=== PATIENT | female | born 1940 | race Caucasian/White ===

== ENCOUNTER → 2018-02-12 07:17 | Outpatient (CLI) | payer MEDICARE, OTHER, SELFPAY ==
--- NOTE | 2018-02-12 07:21 | MRI_ITS ---
STUDY: MRI RIGHT HIP REASON FOR EXAM: Chronic right hip pain for 10-15 years. Psoriatic arthritis. TECHNIQUE: Standardized fat and water weighted pulse sequences were obtained in all 3 orthogonal planes. COMPARISON: Radiographs 06/29/2017. FINDINGS: There is chondral thinning of the right hip and subchondral cystic change/mild bone edema of the right femoral head and acetabulum (proton-density sagittal images 10, 11; inversion recovery coronal images 16-19). There is a right hip joint effusion (proton-density sagittal images 11-14). There is degeneration of the right superior labrum (inversion recovery coronal images 17-19) and right anterosuperior labrum (proton density sagittal image 11). Normal femoral neck and intratrochanteric region. Normal gluteus minimus, medius and iliopsoas tendons and distal insertions. There is very mild right greater trochanteric bursitis (inversion recovery coronal image 15). Normal superior and inferior pubic rami. Normal pubic symphysis. Normal ischial tuberosity. Normal origin of the hamstring tendons. Normal visualized iliac wing, sacroiliac joint, and sacral ala. Normal visualized soft tissue structures of the pelvis. MRI/Lower Ext Joint Only (Routine) IMPRESSION: Right hip arthrosis with degeneration of the labrum and joint effusion. Very mild right greater trochanteric bursitis. Electronically Signed: Artie Multani MD at 8:57 EDT Tel , Service support ,
== END ==
PROVIDERS: Family Provider Internal Medicine; PCP Internal Medicine; Visit Provider Orthopaedic Surgery
DX: M70.61 Trochanteric bursitis, right hip (principal); M16.11 Unilateral primary osteoarthritis, right hip
CPT/HCPCS: 73721

== ENCOUNTER → 2019-12-08 11:16 | Outpatient (CLI) | payer MEDICARE, OTHER, SELFPAY ==
[2019-12-11 03:06] LABS: QNTFERON TB Mitogen Value > 10.00 IU/mL (.); QNTFERON TB Nil Value 0.01 IU/mL (.); QNTFERON TB1+ Ag Value 0.02 IU/mL (.); QNTFERON TB2+ Ag Value 0.01 IU/mL (.)
[2019-12-11 08:11] LABS: QNTIFERON TB Positive Criteria Negative (Negative)
== END ==
PROVIDERS: PCP Internal Medicine; Referring Provider Dermatology Pediatric Dermatology; Visit Provider Dermatology Pediatric Dermatology
DX: L40.0 Psoriasis vulgaris (principal)
CPT/HCPCS: 36415; 86480

== ENCOUNTER 2020-09-13 11:00 | Outpatient (RCR) | payer MEDICARE, OTHER, SELFPAY | END 2020-09-13 23:59 | LOC: IMMUN 11:00 | PROVIDERS: PCP Family Medicine; Visit Provider Family Medicine | DX: Z23 Encounter for immunization (principal) | CPT/HCPCS: 0011A; 0012A; 91301 ==

== ENCOUNTER 2021-11-12 08:05 | Outpatient (CLI) | payer MEDICARE, OTHER, SELFPAY ==
[2021-11-14 21:07] LABS: QNTFERON TB Mitogen Value > 10.00 IU/mL (.); QNTFERON TB Nil Value 0.04 IU/mL (.); QNTFERON TB1+ Ag Value 0.03 IU/mL (.); QNTFERON TB2+ Ag Value 0.02 IU/mL (.)
[2021-11-14 21:50] LABS: QNTIFERON TB Positive Criteria Negative (Negative)
== END 2021-11-12 23:59 | disposition home or self-care (01) ==
LOC: MTLAB 08:08
PROVIDERS: PCP Family Medicine; Referring Provider Dermatology; Visit Provider Dermatology
DX: L40.0 Psoriasis vulgaris (principal); L40.59 Other psoriatic arthropathy; M72.0 Palmar fascial fibromatosis [Dupuytren]; Z79.899 Other long term (current) drug therapy
CPT/HCPCS: 36415; 86480

== ENCOUNTER 2022-11-20 11:32 | Emergency (ER) | payer MEDICARE, OTHER, SELFPAY ==
[2022-11-20] VITALS (10 sets, daily range): BP systolic 116–145; BP diastolic 71–107; PULSE 80–89; RESP 15–25; TEMP 36–36.4; O2SAT 92–98; BMI 31.8
--- NOTE | 2022-11-20 11:33 | CT_ITS ---
STUDY: CT HEAD STROKE PROTOCOL W/O CONTRAST INJECTION REASON FOR EXAM: Female, 82 years old. Neuro deficit, acute, stroke suspected RADIATION DOSAGE (If Supplied By Facility): CTDIvol = ( 44.99 ) mGy, DLP = ( 829.85 ) mGycm TECHNIQUE: Transaxial CT imaging of the brain was performed without administration of intravenous contrast material. Individualized dose optimization techniques were used for this CT. COMPARISON: No relevant priors. FINDINGS: Normal soft tissue structures. Normal calvarium. There is mild cerebral atrophy with widening of the extra-axial spaces and ventricular dilatation. There are areas of decreased attenuation within the white matter tracts of the supratentorial brain, consistent with microvascular disease changes. There are small punctate calcifications of the basal ganglia which are seen in the aging brain as a normal variant. Normal brainstem. Normal cerebellum. There is evidence of subarachnoid hemorrhage. There is evidence of acute intracerebral hematoma involving the posterior right temporal parietal occipital lobes with surrounding edema. There is evidence of a small acute subdural hematoma overlying the anterior medial aspect of the right and left frontal lobes. There is also evidence of a small intracerebral hematoma involving the posterior superior aspect of the left posterior parietal occipital lobes. No shift of the midline is seen. There are no findings of an acute ischemic infarction. Normal visualized paranasal sinuses. CT/STROKE Brain/Head without Cont IMPRESSION: Subarachnoid hemorrhage. Intracerebral hematoma as described. Small subdural hematomas overlying the right and left frontal lobes along the medial aspect. N.B. : The above Results were Read Back by Sen Foster MD to Marc Dl and understanding confirmed on 11/20/2022 11:49:48 (ET). Electronically Signed: Sen Foster MD at 11:51 EDT ,
--- NOTE | 2022-11-20 11:33 | CT_ITS ---
STUDY: CT CERVICAL SPINE WITHOUT CONTRAST REASON FOR EXAM: Female, 82 years old. Fall RADIATION DOSAGE (If Supplied By Facility): CTDIvol = ( 63 ) mGy, DLP = ( 1354.07 ) mGycm TECHNIQUE: High resolution transaxial imaging was performed without contrast material. Sagittal and coronal images were reconstructed. Individualized dose optimization techniques were used for this CT. COMPARISON: None FINDINGS: Tiny linear air collection seen on the left side of the upper cervical spine behind the left C1 facet joint extending to the anterior thecal sac. A tiny air bubbles also seen in the left internal jugular vein. This may represent small amount of air within the left venous structures if left upper extremity venous access was obtained. Normal craniovertebral junction. There are degenerative changes of the anterior atlantoaxial articulation. Normal odontoid process. Normal cervical lordosis. Normal vertebral bodies and posterior osseous elements. C2-3: Normal endplates. Normal disc height and morphology. Normal central canal and intervertebral neuroforamina. C3-4: Normal endplates. Normal disc height and morphology. Normal central canal and intervertebral neuroforamina. C4-5: Facet joint osteoarthritis and hypertrophy. No significant stenosis seen. C5-6: Normal endplates. Normal disc height and morphology. Normal central canal and intervertebral neuroforamina. C6-7: Moderate degree of disc space narrowing and spondylosis. C7-T1: Normal endplates. Normal disc height and morphology. Normal central canal and intervertebral neuroforamina. CT/Spine Cervical without Contras IMPRESSION: degenerative changes, as described above. Annual living collection seen on the left side of the upper cervical spine behind the left C1 facet joint extending to the anterior thecal sac on the left side. This may be related to possible IV access in the left upper extremity. Electronically Signed: Sen Foster MD at 12:04 EDT ,
--- NOTE | 2022-11-20 11:33 | EKG12_ITS ---
Test Reason : FALL Blood Pressure : / mmHG Vent. Rate : 086 BPM Atrial Rate : 000 BPM P-R Int : 000 ms QRS Dur : 080 ms QT Int : 408 ms P-R-T Axes : 000 -34 030 degrees QTc Int : 488 ms Atrial fibrillation with premature ventricular or aberrantly conducted complexes Left axis deviation Low voltage QRS Cannot rule out Anteroseptal infarct , age undetermined Abnormal ECG Confirmed by SLAVA STEINER, MIKE ([id number]), editor book RUBEN JENKINS ([id number]) on 11/24/2022 10:45:56 AM Referred By: Confirmed By:BINA PEDERSEN MD
--- NOTE | 2022-11-20 11:34 | CT_ITS ---
STUDY: CTA HEAD AND NECK WITH CONTRAST REASON FOR EXAM: Female, 82 years old. Neuro deficit, acute, stroke suspected RADIATION DOSAGE (If Supplied By Facility): CTDIvol = ( 34.12 ) mGy, DLP = ( 865.54 ) mGycm TECHNIQUE: CT angiography was performed with a multi-detector CT scanner. Data acquisition was obtained from the skull base through the vertex following intravenous administration of IV 100mL Isovue-370. MIP images were reconstructed from the axial data set. Post-processing of the angiographic images was performed, with multiplanar reformation and 3D reconstruction. Individualized dose optimization techniques were used for this CT. COMPARISON: No relevant priors. FINDINGS: Normal bilateral petrous carotid arteries. There is calcified plaque formation of the right cavernous carotid artery, without a cross-sectional luminal stenosis. There is calcified plaque formation of the left cavernous carotid artery, without a cross-sectional luminal stenosis. Normal right A1 segments of the anterior cerebral artery. Normal left A1 segments of the anterior cerebral artery. Normal intact anterior communicating artery (ACOM). Normal bilateral A2 segments of the anterior cerebral arteries. Normal right M1 and M2 segments of the middle cerebral arteries, with a normal M1 bifurcation. Normal left M1 and M2 segments of the middle cerebral arteries, with a normal M1 bifurcation. Normal right posterior communicating artery (PCOM). Normal left posterior communicating artery (PCOM). Normal bilateral vertebral arteries. Normal basilar artery with a normal basilar bifurcation. The visualized bilateral superior cerebellar (SCA) arteries are normal. Normal bilateral P1, P2 and visualized P3 segments of the posterior cerebral arteries. There is no demonstrated aneurysm of the [place]. AORTIC ARCH: There is atherosclerotic calcific plaque formation of the aortic arch and great vessels arising from the aortic arch, without a hemodynamically significant stenosis. There is a normal origin of the brachiocephalic, left common carotid, and left subclavian arteries. Atherosclerotic plaque formation at the origins of the great vessels of the neck. RIGHT CAROTID ARTERIES: Normal right common carotid artery (CCA). Normal right common carotid bulb. There is mild atherosclerotic plaque formation of the origin of the right internal carotid artery with less than 50% cross sectional diameter stenosis. Normal visualized cervical portion of the right internal carotid artery. Normal origin of the right external carotid artery (ECA). LEFT CAROTID ARTERIES: Normal left common carotid artery (CCA). Normal left common carotid bulb. There is mild atherosclerotic plaque formation of the origin of the left internal carotid artery with less than 50% cross sectional diameter stenosis. Normal visualized cervical portion of the left internal carotid artery. Normal origin of the left external carotid artery (ECA). VERTEBRAL ARTERIES: There is enhancement within the bilateral vertebral arteries with a small right vertebral artery, and a dominant left vertebral artery. CT/STROKE CTA Head AND Neck W/Con IMPRESSION: Mild degree of calcific plaque at the origins of the right and left internal carotid arteries. N.B. : The above Results were Read Back by Sen Foster MD to Marc Lizama and understanding confirmed on 11/20/2022 12:13:58 (ET). Electronically Signed: Sen Foster MD at 12:15 EDT ,
--- NOTE | 2022-11-20 11:36 | EDS_ITS ---
HPI History of Present Illness Chief Complaint: Neuro S/Sx Detail of Chief Complaint: Confusion and concern for stroke Informant: patient and EMS Narrative Narrative: Patient presents to the emergency department after sustaining a fall about half an hour ago. Patient was out walking the dog when she had a witnessed fall. Bystander called EMS. Patient was acting confused and disoriented. EMS felt patient had confusion and unequal pupils. Patient is a poor historian. She did not know where she was. Nurses noted in the medical record that she does have history of A-fib and is on Coumadin. Patient was found to be quite hypertensive in the field with a systolic of 240/140 diastolic. I was asked by EMS if they could give labetalol and I did authorize 20 mg of labetalol IV in route to the hospital. [facility] Medical History (Updated 11/20/22 @ 11:[address] Marc Lizama, ) Atrial fibrillation Diabetes Hypertension Psoriatic arthritis Home Medications cholecalciferol (vitamin D3) 50 mcg (2,000 unit) capsule 2,000 unit PO ONCE 08/06/17 [History Last Taken Unknown] folic acid 400 mcg tablet 400 mcg PO QDAY 08/06/17 [History Last Taken Unknown] lisinopril 5 mg tablet 5 mg PO QDAY 08/06/17 [History Last Taken Unknown] magnesium oxide 500 mg capsule 500 mg PO ONCE 08/06/17 [History Last Taken Unknown] mecobalamin (vitamin B12) 1,000 mcg disintegrating tablet,sublingual 1,000 mcg sublingual QDAY 08/06/17 [History Last Taken Unknown] warfarin 5 mg tablet (Coumadin) 5 mg PO QDAY 08/06/17 [History Last Taken Unknown] coenzyme Q10 100 mg capsule 100 mg PO QDAY 08/10/17 [History Last Taken Unknown] insulin NPH isoph U-100 human 100 unit/mL subcutaneous suspension (Novolin N NPH U-100 Insulin isophane) 5 unit subcut QPM 08/10/17 [History Last Taken Unknown] insulin aspart U-100 100 unit/mL (3 mL) subcutaneous pen (Novolog FlexPen U-100 Insulin aspart) 2 unit subcut QDAY 08/10/17 [History Last Taken Unknown] simvastatin 10 mg tablet 10 mg PO QPM 08/10/17 [History Last Taken Unknown] Allergy/AdvReac Type Severity Reaction Status Date / Time erythromycin base Allergy Mild unknown Verified 02/16/18 09:28 hydroxychloroquine Allergy Mild unknown Verified 02/16/18 09:28 [From Plaquenil] tuberculin, purified protein Allergy Mild unknown Verified 02/16/18 09:28 deriva [From Tubersol] Family History Mother Cancer Aunt Breast cancer Surgical History History of rectal fissure History of tonsillectomy and adenoidectomy Social History (Updated 02/16/18 @ 13:[address] Meredith Dominguez, DO) Smoking Status: Former smoker how long ago did patient quit smokin years ago ROS ROS ED ROS Narrative Fall Review of Systems ROS Unobtainable: other Constitutional Constitutional ED: Reports lethargy; Denies chills, fever(s), sweats or weight loss Eyes Eyes: Denies blurry vision, change in vision or diplopia ENT ENT ED: Denies rhinorrhea or sore throat Cardiovascular Cardiovascular: Denies chest pain, orthopnea or racing heartbeat Respiratory/Chest Respiratory/Chest: Denies cough, dyspnea, dyspnea on exertion, orthopnea or sputum Gastrointestinal Gastrointestinal: Denies abdominal pain, diarrhea, nausea or vomiting Genitourinary Genitourinary ED: Denies dysuria, hematuria or urinary frequency Musculoskeletal Musculoskeletal: Denies arthralgias, back pain, myalgias or neck pain Integumentary Denies abscess, Abrasions or rash Neurologic Neurologic: Reports headache(s); Denies weakness Psychiatric Psychiatric: Denies anxiety, depression or suicidal thoughts Endocrine Endocrinology: Denies polydipsia, polyphagia or polyuria Hematologic/Lymphatic Hematologic/Lymphatic: Denies easy bleeding, easy bruising or lymphadenopathy Allergic/Immunologic Allergic/Immunologic ED: Denies mouth swelling, tongue swelling or urticaria EXAM Physical Exam Const Vital Signs: 11/20/22 11:33 11/20/22 11:51 11/20/22 11:54 Temperature 97.6 F L Temperature Source Temporal Pulse Rate 80 Respiratory Rate 25 H Blood Pressure 145/107 H Blood Pressure Mean 119 Blood Pressure Source Blood Pressure Position Blood Pressure Location Pulse Ox 94 92 Oxygen Delivery Method Room Air Room Air Oxygen Flow Rate (L/min) 11/20/22 11:57 11/20/22 11:58 11/20/22 12:01 Temperature 97.1 F L 96.8 F L Temperature Source Temporal Oral Pulse Rate 87 88 Respiratory Rate 16 16 Blood Pressure 140/91 H 140/91 H Blood Pressure Mean 107 107 Blood Pressure Source Monitor Blood Pressure Position Semi-Fowlers Blood Pressure Location Left Arm Pulse Ox 98 98 Oxygen Delivery Method Room Air Nasal Cannula Nasal Cannula Oxygen Flow Rate (L/min) 2 2 11/20/22 12:04 11/20/22 12:09 11/20/22 12:15 Temperature 96.8 F L Temperature Source Temporal Pulse Rate 86 89 Respiratory Rate 15 16 Blood Pressure 137/71 H 116/71 Blood Pressure Mean 93 86 Blood Pressure Source Blood Pressure Position Blood Pressure Location Pulse Ox 98 94 Oxygen Delivery Method Nasal Cannula Nasal Cannula Oxygen Flow Rate (L/min) 2 2 11/20/22 12:16 11/20/22 12:17 Temperature 96.8 F L Temperature Source Oral Pulse Rate 88 81 Respiratory Rate 18 19 H Blood Pressure 116/71 116/71 Blood Pressure Mean 86 86 Blood Pressure Source Monitor Blood Pressure Position Semi-Fowlers Blood Pressure Location Left Arm Pulse Ox 96 94 Oxygen Delivery Method Nasal Cannula Nasal Cannula Oxygen Flow Rate (L/min) 2 2 Positive well nourished and well developed General Appearance ED: well developed and NAD HEENT Reports TM's clear and moist mucous membranes normocephalic and trauma; Negative for atraumatic or tenderness Nose: other Other Details: Small laceration over the right lateral orbit measuring 2 cm. Tympanic Membrane ED: Yes TM's clear Eyes PERRL and EOMs intact bilaterally General Eye ED: Negative for pale conjunctiva or scleral icterus Neck no lymphadenopathy, supple and no JVD General: Negative for tenderness Chest Wall inspection of chest normal and palpation of chest normal Chest: Negative for tenderness Resp normal respiratory effort and clear to auscultation bilaterally Effort and Inspection: Negative for respiratory distress or pain with movement Auscultation: Negative for rhonchi, wheezes or diminished lung sounds Cardio regular rate, regular rhythm, S1 normal heart sound, S2 normal heart sound and no murmurs Peripheral Pulses: pulses 2+ throughout GI normal to inspection, nondistended, normoactive bowel sounds, soft to palpation, non-tender, non-distended and no masses Back/Spine no CVA tenderness and no thoracic nor lumbar tenderness Extremity normal to inspection Extremity Narrative: Patient not moving left lower extremity. General Extremety ED: Negative for edema General Extremity: Negative for edema Neuro oriented x3, CN's II-XII intact bilaterally, no sensory deficits noted and gait normal Neuro Narrative: NIH stroke scale was a 4 for not moving the left lower extremity. Sensorium / Orientation: awake, alert, oriented to person, oriented to place and oriented to time Motor Exam: strength 5/5 throughout and strength abnormal Psych mental status grossly normal Skin no rashes or lesions noted and no wounds MDM MDM MDM Narrative Medical decision making narrative: Patient was seen on the cot on EMS arrival and sent to the CT scanner. It was noted on CT that she had a into her parenchymal hemorrhage as well as subdural and subarachnoid hemorrhage. I discussed case with [facility] transfer line who accepted transfer of patient to their facility. We called [facility] right away to transfer patient for the intracranial hemorrhage. Lab Data Attestation: I reviewed the patient's lab results. Labs: Laboratory Results - last 24 hr 11/20/22 11/20/22 11/20/22 11:50 11:50 11:50 WBC 10.2 RBC 4.32 Hgb 13.7 Hct 41.5 MCV 96.1 MCH 31.7 MCHC 33.0 RDW Std Deviation 46.6 H RDW Coeff of Brigitte 13.1 Plt Count 319 MPV 10.0 Immature Gran % (Auto) 0.600 Neut % (Auto) 54.4 Lymph % (Auto) 34.0 [place] % (Auto) 9.3 Eos % (Auto) 1.2 Baso % (Auto) 0.5 Absolute Neuts (auto) 5.5 Absolute Lymphs (auto) 3.46 Nucleated RBC % 0 PT 34.1 H INR 3.4 APTT 35.6 Sodium 134 L Potassium 4.1 Chloride 102 Carbon Dioxide 24.0 Anion Gap 8 BUN 22 H Creatinine 0.95 Estim Creat Clear Calc 39.43 Est GFR (MDRD) Af Amer 73 Est GFR (MDRD) Non-Af 60 BUN/Creatinine Ratio 23.2 H Glucose 228 H Calcium 8.0 L Troponin I High Sens 171 H* Radiography Diagnostic Testing: Clinical Impression(s) from Imaging Studies Brain CT 11/20/22 11:33 IMPRESSION: Subarachnoid hemorrhage. Intracerebral hematoma as described. Small subdural hematomas overlying the right and left frontal lobes along the medial aspect. N.B. : The above Results were Read Back by Sen Foster MD to Marc Lizama and understanding confirmed on 11/20/2022 11:49:48 (ET). Electronically Signed: Sen Foster MD at 11:51 EDT Reading Location ID and State: [facility] / [place] , Service support , ADDENDUM: 11/20/22 1158 IMPRESSION: Subarachnoid hemorrhage. Intracerebral hematoma as described. Small subdural hematomas overlying the right and left frontal lobes along the medial aspect. N.B. : The above Results were Read Back by Sen Foster MD to Marc Lizama and understanding confirmed on 11/20/2022 11:49:48 (ET). Electronically Signed: Sen Foster MD at 11:51 EDT Reading Location ID and State: [facility] / [place] , Service support , Cervical Spine CT 11/20/22 11:33 IMPRESSION: degenerative changes, as described above. Annual living collection seen on the left side of the upper cervical spine behind the left C1 facet joint extending to the anterior thecal sac on the left side. This may be related to possible IV access in the left upper extremity. Electronically Signed: Sen Foster MD at 12:04 EDT Reading Location ID and State: [facility] / [place] , Service support , Head/Neck CTA 11/20/22 11:34 IMPRESSION: Mild degree of calcific plaque at the origins of the right and left internal carotid arteries. N.B. : The above Results were Read Back by Sen Foster MD to Marc Lizama and understanding confirmed on 11/20/2022 12:13:58 (ET). Electronically Signed: Sen Foster MD at 12:15 EDT , ADDENDUM: 11/20/22 1222 IMPRESSION: Mild degree of calcific plaque at the origins of the right and left internal carotid arteries. N.B. : The above Results were Read Back by Sen Foster MD to Marc Lizama and understanding confirmed on 11/20/2022 12:13:58 (ET). Electronically Signed: Sen Foster MD at 12:15 EDT , EKG Initial EKG: Attestation: I personally reviewed and interpreted this EKG as follows: Comments: Atrial fibrillation with a ventricular rate of 86 bpm Critical Care Time Critical care time (excluding procedures): 30-74 minutes, Discussing w/Patient &/or Family/Product Development Technician, Discussing w/Consultants, Arranging Admission or Transfer and Performing Direct Patient Care at Bedside Discharge Plan Triage Chief Complaint: Neuro S/Sx ED Provider: Marc Lizama Dx/Rx/DC Orders Clinical Impression: Fall, Intracranial hemorrhage, Subarachnoid hemorrhage, Subdural hematoma, Hypertension Prescriptions: No Action cholecalciferol (vitamin D3) 2,000 unit capsule 2,000 unit PO ONCE magnesium oxide 500 mg capsule 500 mg PO ONCE folic acid 400 mcg tablet 400 mcg PO QDAY mecobalamin (vitamin B12) 1,000 mcg tablet,disintegrating 1,000 mcg SUBLINGUAL QDAY warfarin [Coumadin] 5 mg tablet 5 mg PO QDAY lisinopril 5 mg tablet 5 mg PO QDAY insulin aspart U-100 [Novolog FlexPen U-100 Insulin] 100 unit/mL insulin pen 2 unit SC QDAY insulin NPH isoph U-100 human [Novolin N NPH U-100 Insulin] 100 unit/mL suspension 5 unit SC QPM Label Comments: 5 units in am, 9 units in pm coenzyme Q10 100 mg capsule 100 mg PO QDAY simvastatin 10 mg tablet 10 mg PO QPM Label Comments: 1/2 tablet Primary Care Provider: Vernell Griffin Referrals: Vernell Griffin, PA [Primary Care Provider] - Disposition Disposition: DC/Tx to Another Type of HCF Discharge Location: [facility] Discharge Date/Time: 11/20/22 12:40
[2022-11-20] MEDS: Labetalol (Prefilled) 20 MG/4 ML IV (11:55)
[2022-11-20 12:01] LABS: Absolute Lymphocyte Count 3.46 X10^3/uL (0.83-4.51); Absolute Neutrophil Count 5.5 X10^3/uL (2.0-7.7); Basophil# 0.05 X10^3/uL; Basophil% 0.5 % (0-1); Eosinophil# 0.12 X10^3/uL; Eosinophils% 1.2 % (0-5); Hematocrit 41.5 % (37-47); Hemoglobin 13.7 g/dL (12.0-15.0); Lymphocyte # 3.46 X10^3/ul (0.83-4.51); Mean Corpuscular Hgb 31.7 pg (27.0-32.0); Mean Corpuscular Volume 96.1 fL (81-99); Monocyte# 0.95 X10^3/uL; Monocyte% 9.3 % (0-10); NRBC Flagged by Analyzer 0 % (0-5); Neutrophil # 5.53 X10^3/uL (2.7-7.7); Neutrophil % 54.4 % (47-70); Platelet Count 319 K/mm3 (150-450); RBC Distribution Width CV 13.1 % (11.6-14.6); RBC Distribution Width SD 46.6 fl (35.1-43.9); Red Blood Count 4.32 M/mm3 (4.2-5.4); White Blood Count 10.2 K/mm3 (4.4-11.0)
[2022-11-20] MEDS: Nicardipine HCl-0.9% Sod Chlor 20 MG/200 ML IV.SOLN 50 MG CONT INF (12:01)
[2022-11-20] MEDS: Ondansetron 4 MG/2 ML Vial IV (12:07)
[2022-11-20 12:09] LABS: International Normalized Ratio 3.4; Prothrombin Time (Protime)PT. 34.1 SECONDS (11.7-14.9)
[2022-11-20 12:10] LABS: Partial Thromboplast Time 35.6 Seconds (24.1-36.2)
[2022-11-20 12:19] LABS: Anion Gap 8 (5-15); BUN 22 mg/dL (7-18); BUN/Creat Ratio 23.2 RATIO (10-20); Chloride 102 mmol/L (98-107); Creatinine, Serum 0.95 mg/dL (0.55-1.02); EST Glomerular Filtration Rate 60 mL/min (>60); Est Glom Filt Rate - Afr Amer 73 mL/min (>60); Estimated Creatinine Clearance 39.43 ml/min; Glucose 228 mg/dL (74-106); Potassium 4.1 mmol/L (3.5-5.1); Sodium Level 134 mmol/L (136-145); Troponin-I HS 171 pg/mL (3.0-54.0)
--- NOTE | 2022-11-20 12:30 | CM.ED ---
Social Work Note Referral Source: Stroke Alert Referral Reason: emotional support SW responded to stroke alert and introduced herself and role to patient's . Patient to be life flighted to [facility]; community outreach worker provided patient's with directions. No other needs at this time as patient is being transported out of the hospital, following. Connie Knowles TACK COVERER, JOSETTE
--- NOTE | 2022-11-20 12:39 | ED.RN ---
[facility] GIVEN TO [facility] TO INFUSE DURING TRANSPORT
== END 2022-11-20 12:40 | disposition short-term general hospital (02) ==
PROVIDERS: Emergency Provider Emergency Medicine; PCP Physician Assistant; Visit Provider Emergency Medicine
DX: S06.6XAA Traumatic subarachnoid hemorrhage with loss of consciousness status unknown, initial encounter (principal); I48.91 Unspecified atrial fibrillation; E11.9 Type 2 diabetes mellitus without complications; Z79.4 Long term (current) use of insulin; S06.5XAA Traumatic subdural hemorrhage with loss of consciousness status unknown, initial encounter; W18.39XA Other fall on same level, initial encounter; Y93.K1 Activity, walking an animal; Y99.8 Other external cause status; I10 Essential (primary) hypertension; Z79.899 Other long term (current) drug therapy; Z87.891 Personal history of nicotine dependence; Z79.01 Long term (current) use of anticoagulants
CPT/HCPCS: 70450; 70496; 70498; 72125; 80048; 84484; 85025; 85610; 85730; 93005; 96374; 96375; 99285; J7168; Q9967; A4216; J2405; J3490